=== PATIENT | female | born 1945 | race Caucasian/White ===

== ENCOUNTER 2022-09-16 07:08 | Day surgery (SDC) | payer OTHER ==
[~2022-09-16] VITALS: Ht 154.9 cm; Wt 117.5 kg
[2022-09-16] VITALS (7 sets, daily range): BP systolic 122–140; BP diastolic 44–87
[~2022-09-16 07:08] MED LIST: ALEN70TA74 PO; ANAS1TAB52 PO; GABA300C10 PO; GLIM4TAB42 PO; MAGN400T40 OR; METF-370 PO; METO200T42 PO; MONT-8 PO; PRAM0.373 PO; RIV20T PO; TELM80TA PO; TRIA50TA2 PO
[2022-09-16] MEDS ORDERED: IODIXANOL 320MG/ML 100ML BTL IV ONE (08:41)
[2022-09-16] MEDS ORDERED: LIDOCAINE 2%HCL (LOCAL ANESTH.) INJ 10ml MDV ONE (08:41)
[2022-09-16] MEDS ORDERED: ANGIOMAX 250 MG VIAL IV ONE (08:43)
[2022-09-16] MEDS ORDERED: fentaNYL CITRATE 100 MCG/2 ML VL ONE (08:43)
[2022-09-16] MEDS ORDERED: MIDAZOLAM HCL 2MG/2ML 2ml VIAL (1mg/ml) ONE (08:43)
[2022-09-16] MEDS ORDERED: SODIUM CHL 0.9% 0 ML ONE (08:44)
== END 2022-09-16 11:40 | disposition home or self-care (01) ==
LOC: CATH 07:08
PROVIDERS: ATTEND Internal Medicine Cardiovascular Disease
DX: I25.10 Atherosclerotic heart disease of native coronary artery without angina pectoris (principal); I42.8 Other cardiomyopathies; I44.7 Left bundle-branch block, unspecified; I50.9 Heart failure, unspecified; E66.9 Obesity, unspecified; E11.9 Type 2 diabetes mellitus without complications; E78.5 Hyperlipidemia, unspecified; Z85.3 Personal history of malignant neoplasm of breast; Z79.899 Other long term (current) drug therapy; Z79.84 Long term (current) use of oral hypoglycemic drugs; Z20.822 Contact with and (suspected) exposure to COVID-19
CPT/HCPCS: 76937; 93005; 93458; C1769; C1894; J1644; J2001; J2250; J3010; Q9967; U0003